=== PATIENT | female | born 1955 | race Hispanic/Latino ===

== ENCOUNTER 2019-01-23 11:58 | Day surgery (SDC) | payer MEDICAID ==
[~2019-01-23 11:58] MED LIST: Lactated Ringers 1,000 ML IV SCH; Lidocaine 1%/Sod Bicarbonate in NS 8.4% 1 ML Syringe IDERM PRN; Sodium Chloride 0.9% 10 ML Syringe FLUSH PRN
[2019-01-23] MEDS ORDERED: Propofol 200 MG/20 ML SDV ONE ×3 (12:09→14:41)
--- NOTE | 2019-01-23 12:34 | PCM.PREANE ---
Preanesthetic Assessment - Anesthesia/Transfusion/Family Hx Anesthesia History: Prior Anesthesia Without Reaction Family History of Anesthesia Reaction: No Transfusion History: No Prior Transfusion(s) - Review of Systems General: No Symptoms Pulmonary: No Symptoms Cardiovascular: Dyspnea on Exertion Gastrointestinal: No Symptoms Neurological: No Symptoms Other: Reports: None - Physical Assessment NPO Status Date: 01/22/19 NPO Status Time: 00:00 Pulse: 57 O2 Sat by Pulse Oximetry: 93 Respiratory Rate: 16 Blood Pressure: 135/69 Temperature: 36.4 C Height: 1.55 m Weight: 70.307 kg ASA Class: 2 Mental Status: Alert & Oriented x3 Airway Class: Mallampati = 1 Dentition: Reports: Caries Thyro-Mental Finger Breadths: 3 Mouth Opening Finger Breadths: 3 ROM/Head Extension: Full Lungs: Clear to Auscultation, Normal Respiratory Effort Cardiovascular: Regular Rate, Regular Rhythm - Blood Blood Available: No Product(s) Available: None - Anesthesia Plan Pre-Op Medication Ordered: None - Acknowledgements Anesthesia Type Planned: MAC Pt an Appropriate Candidate for the Planned Anesthesia: Yes Alternatives and Risks of Anesthesia Discussed w Pt/Guardian: Yes Pt/Guardian Understands and Agrees with Anesthesia Plan: Yes PreAnesthesia Questionnaire - SUBSTANCE USE Smoking Status *Q: Never Smoker Second Hand Smoke Exposure: No Days Per Week of Alcohol Use: 0 Number of Drinks Per Day: 0 Total Drinks Per Week: 0 Recreational Drug Use History: No - CURRENT (IN HOUSE) MEDS Current Meds: Current Medications Lactated Ringer's (Ringers, Lactated) 1,000 mls @ 125 mls/hr IV ASDIRECTED EUN Stop: 01/23/19 23:00 Lidocaine/Sodium Bicarbonate (Buffered Lidocaine 1% In Ns 8.4%) 0.25 ml IDERM ONETIME PRN PRN Reason: Prior to IV Start Stop: 01/23/19 18:00 Sodium Chloride (Saline Flush) 10 ml FLUSH ASDIRECTED PRN PRN Reason: Keep Vein Open Stop: 01/23/19 18:00 Discontinued Medications Propofol (Diprivan 20 Ml) Confirm Administered Dose 200 mg .ROUTE .STK-MED ONE Stop: 01/23/19 12:10
[2019-01-23] MEDS ORDERED: Lidocaine 1% 4 ML ONE (13:56)
[2019-01-23] MEDS ORDERED: fentaNYL 100 MCG/2 ML SDV ONE (14:34)
[2019-01-23] MEDS ORDERED: Bisacodyl 10 MG Supp RECTAL ONE (16:15)
--- NOTE | 2019-01-23 20:52 | OR ---
DATE OF OPERATION: 01/23/2019 SURGEON: Greg Tucker MD PREOPERATIVE DIAGNOSIS: Colorectal cancer screening. POSTOPERATIVE DIAGNOSIS: Colorectal cancer screening. OPERATION PERFORMED: Screening colonoscopy. ANESTHESIA: MAC. FINDINGS: She had an excellent bowel prep. There were no polyps. No diverticuloses were noted. She has no polyps. COMPLICATIONS: None. ESTIMATED BLOOD LOSS: None. PATHOLOGY: None. DISPOSITION: Stable at the end of the procedure. INDICATION: The patient is a 63-year-old female who has never had a colonoscopy. She has no family history of colon cancer. She was offered a screening colonoscopy per the standard of care. She was fully informed of the major risks of the procedure. These include, but are not limited to perforation of the colon, bleeding, the risks of anesthesia, and the possibility of further surgery. She gave informed consent to what was done. DESCRIPTION OF PROCEDURE: The patient was brought to the Gastro suite and placed in the left lateral decubitus position. She was giving MAC. Digital rectal exam was performed. This was unremarkable. I introduced the colonoscope into the rectum. I advanced the scope with copious lubrication keeping the lumen in view at all times. She has quite a redundant left colon, which required anterior abdominal wall pressure and repositioning several times. It took about 7 intubations for me to finally pass the scope to the cecum. I documented the cecum photographically. I slowly investigated the mucosa of the colon from the cecum back to the anus in an exam lasting 7 minutes. A thorough careful examination failed to demonstrate polyps, diverticulosis, or any other concerning lesion. The scope was withdrawn. Air was evacuated on the way out. PLAN: She will need another colonoscopy in 10 years. MMODAL /[id number]
== END 2019-01-23 17:23 | disposition home or self-care (01) ==
LOC: JD.SDS 11:58
PROVIDERS: ATTEND Surgery
DX: Z12.11 Encounter for screening for malignant neoplasm of colon (principal); E78.5 Hyperlipidemia, unspecified; Z79.899 Other long term (current) drug therapy
CPT/HCPCS: 00812; A9270-GY; J2001; J2704; J3010; J7120

== ENCOUNTER 2019-05-03 07:18 | Day surgery (SDC) | payer MEDICAID ==
[~2019-05-03 07:18] MED LIST changes: -Lactated Ringers 1,000 ML IV SCH
[2019-05-03] MEDS ORDERED: Lidocaine 1% 4 ML ONE (07:21)
[2019-05-03] MEDS ORDERED: Ondansetron 4 MG/2 ML SDV ONE (07:21)
[2019-05-03] MEDS ORDERED: Dexamethasone 4 MG/ML 5 ML MDV ONE (07:21)
[2019-05-03] MEDS ORDERED: Rocuronium 50 MG/5 ML Vial ONE (07:21)
[2019-05-03] MEDS ORDERED: Propofol 200 MG/20 ML SDV ONE (07:22)
[2019-05-03] MEDS ORDERED: fentaNYL 250 MCG/5 ML SDV ONE (07:22)
[2019-05-03] MEDS ORDERED: Bupivacaine 0.75%/D5W 2 ML Amp ONE (07:34)
[2019-05-03] MEDS: Lactated Ringers 1,000 ML IV SCH ×3 (07:35→20:51)
[2019-05-03] MEDS ORDERED: Lidocaine 1% with EPINEPHrine 1:100,000 20 ML MDV ONE (07:38)
[2019-05-03] MEDS ORDERED: Sodium Chloride 0.9% 50 ML SDV ONE (07:38)
[2019-05-03] MEDS ORDERED: ceFAZolin 1 GM Vial ONE (07:46)
[2019-05-03] MEDS ORDERED: Midazolam 1 MG/ML 2 ML SDV ONE (07:46)
--- NOTE | 2019-05-03 08:26 | PCM.PREANE ---
Preanesthetic Assessment - Procedure Proposed Procedure: Transvaginal Hysterectomy with Bilateral Salpingectomy, possible oophorectomy, possible A/P repair, possible sling - Anesthesia/Transfusion/Family Hx Anesthesia History: Prior Anesthesia Without Reaction Family History of Anesthesia Reaction: No Transfusion History: No Prior Transfusion(s) Anesthesia/Transfusion Comment: no previous difficulties with anesthesia or intubation per family neuropsychology medical consultant - Review of Systems General: No Symptoms Pulmonary: No Symptoms Cardiovascular: No Symptoms Gastrointestinal: No Symptoms Neurological: No Symptoms Other: Reports: None - Physical Assessment NPO Status Date: 05/02/19 NPO Status Time: 21:00 Vital Signs: Last Vital Signs Temp 36.5 C 05/03/19 07:25 Pulse 52 L 05/03/19 07:25 Resp 16 05/03/19 07:25 BP 149/72 H 05/03/19 07:25 Pulse Ox 94 L 05/03/19 07:25 Height: 5 ft 4 in Weight: 71.214 kg ASA Class: 2 Mental Status: Alert & Oriented x3 Airway Class: Mallampati = 2 Dentition: Reports: Normal Dentition Thyro-Mental Finger Breadths: 3 Mouth Opening Finger Breadths: 3 ROM/Head Extension: Full Lungs: Clear to Auscultation, Normal Respiratory Effort Cardiovascular: Regular Rhythm, Bradycardia - Lab Values: Laboratory Last Values WBC 4.57 K/mm3 (3.98-10.04) 05/03/19 07:35 RBC 4.82 M/mm3 (3.98-5.22) 05/03/19 07:35 Hgb 14.0 gm/dl (11.2-15.7) 05/03/19 07:35 Hct 40.8 % (34.1-44.9) 05/03/19 07:35 MCV 84.6 fl (79.4-94.8) 05/03/19 07:35 MCH 29.0 pg (25.6-32.2) 05/03/19 07:35 MCHC 34.3 g/dl (32.2-35.5) 05/03/19 07:35 RDW Std Deviation 41.9 fL (36.4-46.3) 05/03/19 07:35 Plt Count 243 K/mm3 (182-369) 05/03/19 07:35 MPV 10.2 fl (9.4-12.3) 05/03/19 07:35 Neut % (Auto) 56.9 % (34.0-71.1) 05/03/19 07:35 Lymph % (Auto) 30.4 % (19.3-51.7) 05/03/19 07:35 [place] % (Auto) 10.7 % (4.7-12.5) 05/03/19 07:35 Eos % (Auto) 1.3 (0.7-5.8) 05/03/19 07:35 Baso % (Auto) 0.7 % (0.1-1.2) 05/03/19 07:35 Neut # (Auto) 2.60 K/mm3 (1.56-6.13) 05/03/19 07:35 Lymph # (Auto) 1.39 K/mm3 (1.18-3.74) 05/03/19 07:35 [place] # (Auto) 0.49 K/mm3 (0.24-0.36) H 05/03/19 07:35 Eos # (Auto) 0.06 K/mm3 (0.04-0.36) 05/03/19 07:35 Baso # (Auto) 0.03 K/mm3 (0.01-0.08) 05/03/19 07:35 Sodium 140 mEq/L (136-145) 05/03/19 07:35 Potassium 3.7 mEq/L (3.5-5.1) 05/03/19 07:35 Chloride 104 mEq/L (98-107) 05/03/19 07:35 Carbon Dioxide 25 mEq/L (21-32) 05/03/19 07:35 Anion Gap 14.7 (5-15) 05/03/19 07:35 BUN 16 mg/dL (7-18) 05/03/19 07:35 Creatinine 0.6 mg/dL (0.55-1.02) 05/03/19 07:35 Est Cr Clr Drug Dosing 81.80 mL/min 05/03/19 07:35 Estimated GFR (MDRD) > 60 mL/min (>60) 05/03/19 07:35 BUN/Creatinine Ratio 26.7 (14-18) H 05/03/19 07:35 Glucose 106 mg/dL (80-115) 05/03/19 07:35 Calcium 9.6 mg/dL (8.5-10.1) 05/03/19 07:35 Total Bilirubin 0.6 mg/dL (0.2-1.0) 05/03/19 07:35 AST 18 U/L (15-37) 05/03/19 07:35 ALT 33 U/L (14-59) 05/03/19 07:35 Alkaline Phosphatase 64 U/L (46-116) 05/03/19 07:35 Total Protein 7.9 g/dl (6.4-8.2) 05/03/19 07:35 Albumin 4.3 g/dl (3.4-5.0) 05/03/19 07:35 Globulin 3.6 gm/dL 05/03/19 07:35 Albumin/Globulin Ratio 1.2 (1-2) 05/03/19 07:35 Urine Color Yellow (Yellow) 05/03/19 07:21 Urine Appearance Clear (Clear) 05/03/19 07:21 Urine pH 7.5 (5.0-8.0) 05/03/19 07:21 Ur Specific [place] 1.020 (1.005-1.030) 05/03/19 07:21 Urine Protein Negative (Negative) 05/03/19 07:21 Urine Glucose (UA) Negative (Negative) 05/03/19 07:21 Urine Ketones Negative (Negative) 05/03/19 07:21 Urine Occult Blood 1+ (Negative) H 05/03/19 07:21 Urine Nitrite Negative (Negative) 05/03/19 07:21 Urine Bilirubin Negative (Negative) 05/03/19 07:21 Urine Urobilinogen 0.2 (0.2-1.0) 05/03/19 07:21 Ur Leukocyte Esterase 1+ (Negative) H 05/03/19 07:21 - Allergies Allergies/Adverse Reactions: Allergies Allergy/AdvReac Type Severity Reaction Status Date / Time No Known Allergies Allergy Verified 05/03/19 08:09 - Anesthesia Plan Pre-Op Medication Ordered: None - Acknowledgements Anesthesia Type Planned: General Anesthesia Pt an Appropriate Candidate for the Planned Anesthesia: Yes Alternatives and Risks of Anesthesia Discussed w Pt/Guardian: Yes Pt/Guardian Understands and Agrees with Anesthesia Plan: Yes PreAnesthesia Questionnaire HEENT History: Reports: Glaucoma, Sinusitis, Other (See Below) Other HEENT History: sinus surgery, wears glasses, has lower dentures Cardiovascular History: Reports: SOB on Exertion Respiratory History: Reports: None Gastrointestinal History: Reports: GERD Genitourinary History: Reports: Renal Disease, Other (See Below) Other Genitourinary History: ESRD, urinary retention CAMPUS COORDINATOR History: Reports: None Musculoskeletal History: Reports: Osteoporosis Neurological History: Reports: None Psychiatric History: Reports: Anxiety, Depression Endocrine/Metabolic History: Reports: Hypothyroidism Hematologic History: Reports: Anemia, Other (See Below) Other Hematologic History: hyperphosphatemia Immunologic History: Reports: None Oncologic (Cancer) History: Reports: Prostate Dermatologic History: Reports: Other (See Below) Other Dermatologic History: senile hyperkeratosis, viral warts - Past Surgical History Head Surgeries/Procedures: Reports: None HEENT Surgical History: Reports: None Cardiovascular Surgical History: Reports: None, Vascular Surgery Respiratory Surgical History: Reports: None GI Surgical History: Reports: Appendectomy, Cholecystectomy, Colonoscopy, EGD, Hernia Repair/Other, Other (See Below) Other GI Surgeries/Procedures: splenectomy Other Female Surgeries/Procedures: cystoscopy, kidney transplant x 2 (1983 and 2006) Male Surgical History: Reports: Nephrectomy, Other (See Below) Endocrine Surgical History: Reports: None Neurological Surgical History: Reports: None Musculoskeletal Surgical History: Reports: None Oncologic Surgical History: Reports: None Dermatological Surgical History: Reports: None - SUBSTANCE USE Smoking Status *Q: Never Smoker Tobacco Use Within Last Twelve Months: No Second Hand Smoke Exposure: No Recreational Drug Use History: No - HOME MEDS Home Medications: Home Meds Cholecalciferol (Vitamin D3) [Vitamin D3] 2,000 unit PO DAILY 01/23/19 [History] Rosuvastatin [Crestor] 5 mg PO DAILY 01/23/19 [History] Alendronate Sodium [Fosamax] 70 mg PO FR 05/03/19 [History] Meloxicam 15 mg PO DAILY PRN 05/03/19 [History] - CURRENT (IN HOUSE) MEDS Current Meds: Current Medications Lactated Ringer's (Ringers, Lactated) 1,000 mls @ 125 mls/hr IV ASDIRECTED EUN Stop: 05/03/19 23:00 Last Admin: 05/03/19 07:35 Dose: 125 mls/hr Lidocaine/Sodium Bicarbonate (Buffered Lidocaine 1% In Ns 8.4%) 0.25 ml IDERM ONETIME PRN PRN Reason: Prior to IV Start Stop: 05/03/19 18:00 Last Admin: 05/03/19 07:35 Dose: 0.25 ml Sodium Chloride (Saline Flush) 10 ml FLUSH ASDIRECTED PRN PRN Reason: Keep Vein Open Stop: 05/03/19 18:00 Discontinued Medications Bupivacaine HCl/Dextrose (Marcaine 0.75% Spinal) Confirm Administered Dose 2 ml .ROUTE .STK-MED ONE Stop: 05/03/19 07:35 Cefazolin Sodium (Ancef) Confirm Administered Dose 2 gm .ROUTE .STK-MED ONE Stop: 05/03/19 07:47 Dexamethasone (Dexamethasone) Confirm Administered Dose 20 mg .ROUTE .STK-MED ONE Stop: 05/03/19 07:22 Fentanyl (Sublimaze) Confirm Administered Dose 250 mcg .ROUTE .STK-MED ONE Stop: 05/03/19 07:23 Lidocaine HCl (Xylocaine-Mpf 1%) Confirm Administered Dose 4 mls @ as directed .ROUTE .STK-MED ONE Stop: 05/03/19 07:22 Lidocaine/Epinephrine (Xylocaine 1% With Epinephrine 1:100,000) Confirm Administered Dose 20 ml .ROUTE .STK-MED ONE Stop: 05/03/19 07:39 Midazolam HCl (Versed 1 Mg/Ml) Confirm Administered Dose 2 mg .ROUTE .STK-MED ONE Stop: 05/03/19 07:47 Ondansetron HCl (Zofran) Confirm Administered Dose 4 mg .ROUTE .STK-MED ONE Stop: 05/03/19 07:22 Propofol (Diprivan 20 Ml) Confirm Administered Dose 200 mg .ROUTE .STK-MED ONE Stop: 05/03/19 07:23 Rocuronium [place] (Zemuron) Confirm Administered Dose 50 mg .ROUTE .STK-MED ONE Stop: 05/03/19 07:22 Sodium Chloride (Normal Saline) Confirm Administered Dose 50 ml .ROUTE .STK-MED ONE Stop: 05/03/19 07:39
[2019-05-03] MEDS ORDERED: Morphine 10 MG/ML SDV ONE (09:09)
[2019-05-03] MEDS ORDERED: Enoxaparin 40 MG/0.4 ML Syringe SUBCUT ONE (10:12)
[2019-05-03] MEDS ORDERED: fentaNYL 100 MCG/2 ML SDV IVPUSH PRN (10:22)
[2019-05-03] MEDS ORDERED: Ondansetron 4 MG/2 ML SDV IVPUSH PRN ×2 (10:22→16:02)
[2019-05-03] MEDS ORDERED: HYDROmorphone 0.5 MG/0.5 ML Syringe IVPUSH PRN (10:22)
--- NOTE | 2019-05-03 10:24 | PCM.POSTAN ---
POST ANESTHESIA ASSESSMENT - MENTAL STATUS Mental Status: Somnolent - VITAL SIGNS Vital Signs: Last Vital Signs Temp 36.7 C 05/03/19 10:00 Pulse 68 05/03/19 10:00 Resp 12 05/03/19 10:00 BP 119/74 05/03/19 10:00 Pulse Ox 92 L 05/03/19 10:00 - RESPIRATORY Respiratory Status: Respiratory Rate WNL, Airway Patent, O2 Saturation Stable - CARDIOVASCULAR CV Status: Pulse Rate WNL, Blood Pressure Stable - GASTROINTESTINAL GI Status: No Symptoms - POST OP HYDRATION Hydration Status: Adequate & Stable - OBSERVATIONS Free Text/Narrative:: Patient somnolent but stable
--- NOTE | 2019-05-03 10:30 | PCM.OPNOTE ---
- General Post-Op/Procedure Note Date of Surgery/Procedure: 05/03/19 Operative Procedure(s): Transvaginal hysterectomy, bilateral salpingectomy, anterior repair, transvaginal tape mid urethral sling and cystoscopy Findings: Grossly normal-appearing cervix, uterus and bilateral fallopian tubes. Normal- appearing ovaries on exam. Grade 3 cystocele on exam with grade 1 rectocele. Pre Op Diagnosis: Uterine prolapse, female pelvic pain, stress urinary incontinence and cystocele Post-Op Diagnosis: Same Anesthesia Technique: General ET Tube Primary Surgeon: Juvenal Gramajo Anesthesia Provider: Duong Caro Blurb Writer: Andi Caballero Blurb Writer: Sloan Appiah ([place] student) Reason Blurb Writer Was Necessary: Patient safety and reduction of morbidity and mortality Role of Blurb Writer: Retraction of tissue during procedure for visualization and safety of procedure Pathology: Cervix, uterus and bilateral fallopian tubes Fluid Replacement, Intraop: 1,500 Output, Urine Amount: 400 EBL in mLs: 100 Complications: None Condition: Good Free Text/Narrative:: Procedure in detail: The patient was seen in the preoperative holding area and risks, benefits, indications, and alternatives of the procedure were reviewed with the patient and she desired to proceed with a total vaginal hysterectomy, bilateral salpingectomy, anterior repair, mid urethral sling, cystoscopy, possible posterior repair and possible total abdominal hysterectomy. Consents were signed. The patient was given general anesthesia with an endotracheal tube that was placed without difficulty. The patient was placed in dorsal lithotomy position , prepped, and draped in normal sterile fashion. A urethral catheter was placed into the bladder for drainage of the urine from the bladder. A weighted speculum was placed into the vagina and the anterior lip of the cervix was grasped with the single-tooth tenaculum. A second single-tooth tenaculum was used to grasp the entirety of the cervix. The cervix was injected circumferentially with 0.25% lidocaine with epinephrine. The cervix was circumferentially incised with a scalpel. The bladder was dissected off the pubovesical cervical fascia anteriorly with Badillo scissors. The posterior cul-de -sac was entered sharply without difficulty using Badillo scissors. A Enseal vessel sealing device was placed over the uterosacral ligaments on the patient' s left side. These were cauterized and ligated with the LigaSure vessel sealing device. This was repeated on the patient's right side. Hemostasis was assured. The anterior cul-de-sac was then able to be entered using sharp dissection with Badillo scissors. The cardinal ligaments were then clamped on both sides with Enseal vessel sealing device, cauterized and ligated with the device. The uterine arteries and broad ligament were then serially clamped with Enseal vessel sealing device, cauterized and ligated with the device] on both sides. Hemostasis was visualized at this time. The cornua on the left side was clamped using a Shandra clamp and ligated with scissors. A foreign aft stitch with 0 Monocryl was used for hemostasis. The cornua was clamped on the right side with Enseal vessel sealing device, cauterized and ligated, and the uterus delivered. The pedicles were inspected and noted to have hemostasis. The left fallopian tube was then visualized and grasped using a Favian clamp and excised using LigaSure vessel sealing device. This was repeated on the right side with grasping of the fallopian tube with a Favian clamp and excised using LigaSure vessel sealing device. The posterior vaginal cuff was closed with running locked sutures of 0-Monocryl. Attention was then turned to the pelvis for the anterior and posterior repair. There was noted to be a grade 3 cystocele and grade 1 rectocele. The vaginal mucosa overlying the bladder was grasped using Allis clamps and was injected using 0.25% lidocaine with epinephrine. The mucosa was then excised in a triangular fashion using a scalpel and Badillo scissors. The lateral sides of the bladder the mucosa was undermined using Badillo scissors. The vesicovaginal fascia was then reapproximated using 0-Monocryl suture with box sutures. The edges of the vaginal mucosa was trimmed further using Metzenbaum scissors. The incision was closed using 3-0 Monocryl sutures in a running locked fashion. The vaginal cuff was closed with running locked stitches in a horizontal fashion with 0-Monocryl. Hemostasis was noted at this time. An Allis clamp was placed approximately 2 cm below the urethral opening. A second Allis clamp was placed 2 cm below the first Allis clamp. The vaginal mucosa was then injected with 0.25% lidocaine with epinephrine. A scalpel was used to make a midline incision through the vaginal mucosa. Badillo scissors were used to dissect the vaginal mucosa from the underlying tissue on the patient's right side. This was carried out to the pubic rami. This was repeated on the left side and completed without difficulty. Attention was then turned to the patient's mons and the skin was injected with 0.25% lidocaine with epinephrine in the bilateral sides approximately 2 cm from midline. A stab incision was made with a scalpel on the bilateral sides without complications. The urethral sling hook was then used on the patient's left side and placed through the stab incision and with a finger in the vagina behind the pubic rami, the tip of the hook was felt and then directed out through the midline vaginal incision. The transobturator tape was attached to the hook and pulled through the incision. Attention was then turned to the patient's right side where, again, the transobturator pigtail hook was placed through the stab incision and with a finger in the vagina was directed posterior to the lateral pubic rami and directed through the vaginal incision. The other end of the tape was attached to the hook and pulled through, making sure that the tape was flat under the patient's urethra. The bladder was then filled with 240 mL of sterile saline through the previously inserted urethral catheter. The urethral catheter was removed at this time. A simple cystoscopy was performed and evaluation of the bilateral bladder chauhan did not show any evidence of injury. There was bilateral ureteral jetting noted with cystoscopy. The cystoscopy portion of the procedure was completed at this time. A Badillo scissors was used between the urethral sling and urethra to allow for a tension-free placement of the tape. The ends of the tape were then cut at the level of the skin on the patient on both sides at the stab incisions. Attention was then turned to the midline incision, which was closed using 3-0 Monocryl in a running fashion. The skin incisions were closed using Dermabond glue. All instruments were removed from the vagina. The patient was awoken and taken to the PACU for recovery in stable condition. Sponge, lap, needle, and instrument counts were correct x 2.
--- NOTE | 2019-05-03 11:17 | PCM48HPAN ---
Post Anesthesia Note - EVALUATION WITHIN 48HRS OF ANESTHETIC Vital Signs in Normal Range: Yes Patient Participated in Evaluation: No Respiratory Function Stable: Yes Airway Patent: Yes Cardiovascular Function Stable: Yes Hydration Status Stable: Yes Pain Control Satisfactory: Yes Nausea and Vomiting Control Satisfactory: Yes Mental Status Recovered: Yes Vital Signs: Last Vital Signs Temp 36.6 C 05/03/19 10:45 Pulse 65 05/03/19 10:45 Resp 14 05/03/19 10:45 BP 137/74 05/03/19 10:45 Pulse Ox 94 L 05/03/19 10:45 - COMMENTS/OBSERVATIONS Free Text/Narrative:: Patient somewhat somnolent but denies pain and nausea. No O2 requirements. CTAB. VSS. SV. SIN. FAC. No complications.
[2019-05-03] MEDS: Acetaminophen/oxyCODONE 325-5 MG Tab PO PRN ×3 (13:21→21:16)
[2019-05-03] MEDS ORDERED: Ibuprofen 600 MG Tab PO PRN (16:02)
[2019-05-04] MEDS ORDERED: Lactated Ringers 1,000 ML IV SCH (05:15)
--- NOTE | 2019-05-04 07:16 | PCM.SN ---
- Free Text/Narrative Note: Post Op Note Subjective: Patient reports feeling well overall. Reports feeling much better this morning. Continues to have some difficulty with breathing due to the irritation in her throat from the endotracheal tube. Pain minimal and controlled with oral medications. Tolerating regular diet. Denies any nausea or vomiting this morning. Had 1 episode of emesis last evening after dinner. Reports not passing flatus at this time. Voiding without difficulty. Ambulating without difficulty. Objective: Vitals Vital Signs - 8 hr 05/04/19 05/04/19 00:16 04:59 Temperature 37.1 C 36.8 C Pulse, 45 L 48 L Peripheral Respiratory 14 12 Rate Blood Pressure 105/46 L 110/57 L O2 Sat by Pulse 92 L 92 L Oximetry I/O: Intake & Output 05/02/19 05/03/19 05/04/19 05/05/19 06:59 06:59 06:59 06:59 Intake Total 3140 Output Total 1510 Balance 1630 Gen: No acute distress, alert and oriented Lungs: Clear to auscultation bilaterally Heart: Regular rate and rhythm Abdomen: Soft, minimal appropriate tenderness, nondistended, bowel sounds positive Incisions: Healing well, no bleeding or discharge, no erythema present, skin glue covering incisions Pelvic: Minimal appropriate bleeding present on thang-pad Laboratory Results - last 24 hr 05/03/19 05/03/19 05/03/19 Range/Units 07:21 07:35 07:35 WBC 4.57 (3.98-10.04) K/mm3 RBC 4.82 (3.98-5.22) M/mm3 Hgb 14.0 (11.2-15.7) gm/dl Hct 40.8 (34.1-44.9) % MCV 84.6 (79.4-94.8) fl MCH 29.0 (25.6-32.2) pg MCHC 34.3 (32.2-35.5) g/dl RDW Std Deviation 41.9 (36.4-46.3) fL Plt Count 243 (182-369) K/mm3 MPV 10.2 (9.4-12.3) fl Neut % (Auto) 56.9 (34.0-71.1) % Lymph % (Auto) 30.4 (19.3-51.7) % [place] % (Auto) 10.7 (4.7-12.5) % Eos % (Auto) 1.3 (0.7-5.8) Baso % (Auto) 0.7 (0.1-1.2) % Neut # (Auto) 2.60 (1.56-6.13) K/mm3 Lymph # (Auto) 1.39 (1.18-3.74) K/mm3 [place] # (Auto) 0.49 H (0.24-0.36) K/mm3 Eos # (Auto) 0.06 (0.04-0.36) K/mm3 Baso # (Auto) 0.03 (0.01-0.08) K/mm3 Sodium (136-145) mEq/L Potassium (3.5-5.1) mEq/L Chloride (98-107) mEq/L Carbon Dioxide (21-32) mEq/L Anion Gap (5-15) BUN (7-18) mg/dL Creatinine (0.55-1.02) mg/dL Est Cr Clr Drug Dosing mL/min Estimated GFR (MDRD) (>60) mL/min BUN/Creatinine Ratio (14-18) Glucose (80-115) mg/dL Calcium (8.5-10.1) mg/dL Total Bilirubin (0.2-1.0) mg/dL AST (15-37) U/L ALT (14-59) U/L Alkaline Phosphatase (46-116) U/L Total Protein (6.4-8.2) g/dl Albumin (3.4-5.0) g/dl Globulin gm/dL Albumin/Globulin Ratio (1-2) Urine Color Yellow (Yellow) Urine Appearance Clear (Clear) Urine pH 7.5 (5.0-8.0) Ur Specific [place] 1.020 (1.005-1.030) Urine Protein Negative (Negative) Urine Glucose (UA) Negative (Negative) Urine Ketones Negative (Negative) Urine Occult Blood 1+ H (Negative) Urine Nitrite Negative (Negative) Urine Bilirubin Negative (Negative) Urine Urobilinogen 0.2 (0.2-1.0) Ur Leukocyte Esterase 1+ H (Negative) Blood Type A POSITIVE Gel Antibody Screen Negative 05/03/19 05/04/19 Range/Units 07:35 04:05 WBC 6.97 (3.98-10.04) K/mm3 RBC 4.18 (3.98-5.22) M/mm3 Hgb 12.1 D (11.2-15.7) gm/dl Hct 35.5 (34.1-44.9) % MCV 84.9 (79.4-94.8) fl MCH 28.9 (25.6-32.2) pg MCHC 34.1 (32.2-35.5) g/dl RDW Std Deviation 41.2 (36.4-46.3) fL Plt Count 228 (182-369) K/mm3 MPV 10.5 (9.4-12.3) fl Neut % (Auto) 75.9 H (34.0-71.1) % Lymph % (Auto) 14.9 L (19.3-51.7) % [place] % (Auto) 9.2 (4.7-12.5) % Eos % (Auto) 0 L (0.7-5.8) Baso % (Auto) 0.0 L (0.1-1.2) % Neut # (Auto) 5.29 (1.56-6.13) K/mm3 Lymph # (Auto) 1.04 L (1.18-3.74) K/mm3 [place] # (Auto) 0.64 H (0.24-0.36) K/mm3 Eos # (Auto) 0.00 L (0.04-0.36) K/mm3 Baso # (Auto) 0.00 L (0.01-0.08) K/mm3 Sodium 140 (136-145) mEq/L Potassium 3.7 (3.5-5.1) mEq/L Chloride 104 (98-107) mEq/L Carbon Dioxide 25 (21-32) mEq/L Anion Gap 14.7 (5-15) BUN 16 (7-18) mg/dL Creatinine 0.6 (0.55-1.02) mg/dL Est Cr Clr Drug Dosing 81.80 mL/min Estimated GFR (MDRD) > 60 (>60) mL/min BUN/Creatinine Ratio 26.7 H (14-18) Glucose 106 (80-115) mg/dL Calcium 9.6 (8.5-10.1) mg/dL Total Bilirubin 0.6 (0.2-1.0) mg/dL AST 18 (15-37) U/L ALT 33 (14-59) U/L Alkaline Phosphatase 64 (46-116) U/L Total Protein 7.9 (6.4-8.2) g/dl Albumin 4.3 (3.4-5.0) g/dl Globulin 3.6 gm/dL Albumin/Globulin Ratio 1.2 (1-2) Urine Color (Yellow) Urine Appearance (Clear) Urine pH (5.0-8.0) Ur Specific [place] (1.005-1.030) Urine Protein (Negative) Urine Glucose (UA) (Negative) Urine Ketones (Negative) Urine Occult Blood (Negative) Urine Nitrite (Negative) Urine Bilirubin (Negative) Urine Urobilinogen (0.2-1.0) Ur Leukocyte Esterase (Negative) Blood Type Gel Antibody Screen Assesment/Plan: 64-year-old with postoperative drop in her saturation requiring additional monitoring and oxygen supplementation as well as monitoring bleeding in the setting of surgery with Lovenox injection status post transvaginal hysterectomy , bilateral salpingectomy, anterior repair, tension-free transvaginal tape mid urethral sling and cystoscopy POD #1 Doing well No concerns at this time Routine post op care Monitor vitals Minimal drop in her hemoglobin from 14.0 down to 12.1 this morning. Suspect that this is due to the loss during surgery and hemodilution with IV fluids. Patient doing well with normal vital signs. Patient maintaining O2 saturations in mid 90s without oxygen supplementation. Patient feels much improved after surgery yesterday. She desires to be discharged home this morning. Discharge home today Juvenal Gramajo MD 7:14 AM 05/04/2019
--- NOTE | 2019-05-04 07:22 | PCM.DCSUM1 ---
Discharge Summary - Hospital Course Free Text/Narrative:: Procedure in detail: The patient was seen in the preoperative holding area and risks, benefits, indications, and alternatives of the procedure were reviewed with the patient and she desired to proceed with a total vaginal hysterectomy, bilateral salpingectomy, anterior repair, mid urethral sling, cystoscopy, possible posterior repair and possible total abdominal hysterectomy. Consents were signed. The patient was given general anesthesia with an endotracheal tube that was placed without difficulty. The patient was placed in dorsal lithotomy position , prepped, and draped in normal sterile fashion. A urethral catheter was placed into the bladder for drainage of the urine from the bladder. A weighted speculum was placed into the vagina and the anterior lip of the cervix was grasped with the single-tooth tenaculum. A second single-tooth tenaculum was used to grasp the entirety of the cervix. The cervix was injected circumferentially with 0.25% lidocaine with epinephrine. The cervix was circumferentially incised with a scalpel. The bladder was dissected off the pubovesical cervical fascia anteriorly with Badillo scissors. The posterior cul-de -sac was entered sharply without difficulty using Badillo scissors. A Enseal vessel sealing device was placed over the uterosacral ligaments on the patient' s left side. These were cauterized and ligated with the LigaSure vessel sealing device. This was repeated on the patient's right side. Hemostasis was assured. The anterior cul-de-sac was then able to be entered using sharp dissection with Badillo scissors. The cardinal ligaments were then clamped on both sides with Enseal vessel sealing device, cauterized and ligated with the device. The uterine arteries and broad ligament were then serially clamped with Enseal vessel sealing device, cauterized and ligated with the device] on both sides. Hemostasis was visualized at this time. The cornua on the left side was clamped using a Shandra clamp and ligated with scissors. A foreign aft stitch with 0 Monocryl was used for hemostasis. The cornua was clamped on the right side with Enseal vessel sealing device, cauterized and ligated, and the uterus delivered. The pedicles were inspected and noted to have hemostasis. The left fallopian tube was then visualized and grasped using a Favian clamp and excised using LigaSure vessel sealing device. This was repeated on the right side with grasping of the fallopian tube with a Favian clamp and excised using LigaSure vessel sealing device. The posterior vaginal cuff was closed with running locked sutures of 0-Monocryl. Attention was then turned to the pelvis for the anterior and posterior repair. There was noted to be a grade 3 cystocele and grade 1 rectocele. The vaginal mucosa overlying the bladder was grasped using Allis clamps and was injected using 0.25% lidocaine with epinephrine. The mucosa was then excised in a triangular fashion using a scalpel and Badillo scissors. The lateral sides of the bladder the mucosa was undermined using Badillo scissors. The vesicovaginal fascia was then reapproximated using 0-Monocryl suture with box sutures. The edges of the vaginal mucosa was trimmed further using Metzenbaum scissors. The incision was closed using 3-0 Monocryl sutures in a running locked fashion. The vaginal cuff was closed with running locked stitches in a horizontal fashion with 0-Monocryl. Hemostasis was noted at this time. An Allis clamp was placed approximately 2 cm below the urethral opening. A second Allis clamp was placed 2 cm below the first Allis clamp. The vaginal mucosa was then injected with 0.25% lidocaine with epinephrine. A scalpel was used to make a midline incision through the vaginal mucosa. Badillo scissors were used to dissect the vaginal mucosa from the underlying tissue on the patient's right side. This was carried out to the pubic rami. This was repeated on the left side and completed without difficulty. Attention was then turned to the patient's mons and the skin was injected with 0.25% lidocaine with epinephrine in the bilateral sides approximately 2 cm from midline. A stab incision was made with a scalpel on the bilateral sides without complications. The urethral sling hook was then used on the patient's left side and placed through the stab incision and with a finger in the vagina behind the pubic rami, the tip of the hook was felt and then directed out through the midline vaginal incision. The transobturator tape was attached to the hook and pulled through the incision. Attention was then turned to the patient's right side where, again, the transobturator pigtail hook was placed through the stab incision and with a finger in the vagina was directed posterior to the lateral pubic rami and directed through the vaginal incision. The other end of the tape was attached to the hook and pulled through, making sure that the tape was flat under the patient's urethra. The bladder was then filled with 240 mL of sterile saline through the previously inserted urethral catheter. The urethral catheter was removed at this time. A simple cystoscopy was performed and evaluation of the bilateral bladder chauhan did not show any evidence of injury. There was bilateral ureteral jetting noted with cystoscopy. The cystoscopy portion of the procedure was completed at this time. A Badillo scissors was used between the urethral sling and urethra to allow for a tension-free placement of the tape. The ends of the tape were then cut at the level of the skin on the patient on both sides at the stab incisions. Attention was then turned to the midline incision, which was closed using 3-0 Monocryl in a running fashion. The skin incisions were closed using Dermabond glue. All instruments were removed from the vagina. The patient was awoken and taken to the PACU for recovery in stable condition. Sponge, lap, needle, and instrument counts were correct x 2. HPI Initial Comments: Procedure in detail: The patient was seen in the preoperative holding area and risks, benefits, indications, and alternatives of the procedure were reviewed with the patient and she desired to proceed with a total vaginal hysterectomy, bilateral salpingectomy, anterior repair, mid urethral sling, cystoscopy, possible posterior repair and possible total abdominal hysterectomy. Consents were signed. The patient was given general anesthesia with an endotracheal tube that was placed without difficulty. The patient was placed in dorsal lithotomy position , prepped, and draped in normal sterile fashion. A urethral catheter was placed into the bladder for drainage of the urine from the bladder. A weighted speculum was placed into the vagina and the anterior lip of the cervix was grasped with the single-tooth tenaculum. A second single-tooth tenaculum was used to grasp the entirety of the cervix. The cervix was injected circumferentially with 0.25% lidocaine with epinephrine. The cervix was circumferentially incised with a scalpel. The bladder was dissected off the pubovesical cervical fascia anteriorly with Badillo scissors. The posterior cul-de -sac was entered sharply without difficulty using Badillo scissors. A Enseal vessel sealing device was placed over the uterosacral ligaments on the patient' s left side. These were cauterized and ligated with the LigaSure vessel sealing device. This was repeated on the patient's right side. Hemostasis was assured. The anterior cul-de-sac was then able to be entered using sharp dissection with Badillo scissors. The cardinal ligaments were then clamped on both sides with Enseal vessel sealing device, cauterized and ligated with the device. The uterine arteries and broad ligament were then serially clamped with Enseal vessel sealing device, cauterized and ligated with the device] on both sides. Hemostasis was visualized at this time. The cornua on the left side was clamped using a Shandra clamp and ligated with scissors. A foreign aft stitch with 0 Monocryl was used for hemostasis. The cornua was clamped on the right side with Enseal vessel sealing device, cauterized and ligated, and the uterus delivered. The pedicles were inspected and noted to have hemostasis. The left fallopian tube was then visualized and grasped using a Silverpeak clamp and excised using LigaSure vessel sealing device. This was repeated on the right side with grasping of the fallopian tube with a Favian clamp and excised using LigaSure vessel sealing device. The posterior vaginal cuff was closed with running locked sutures of 0-Monocryl. Attention was then turned to the pelvis for the anterior and posterior repair. There was noted to be a grade 3 cystocele and grade 1 rectocele. The vaginal mucosa overlying the bladder was grasped using Allis clamps and was injected using 0.25% lidocaine with epinephrine. The mucosa was then excised in a triangular fashion using a scalpel and Badillo scissors. The lateral sides of the bladder the mucosa was undermined using Badillo scissors. The vesicovaginal fascia was then reapproximated using 0-Monocryl suture with box sutures. The edges of the vaginal mucosa was trimmed further using Metzenbaum scissors. The incision was closed using 3-0 Monocryl sutures in a running locked fashion. The vaginal cuff was closed with running locked stitches in a horizontal fashion with 0-Monocryl. Hemostasis was noted at this time. An Allis clamp was placed approximately 2 cm below the urethral opening. A second Allis clamp was placed 2 cm below the first Allis clamp. The vaginal mucosa was then injected with 0.25% lidocaine with epinephrine. A scalpel was used to make a midline incision through the vaginal mucosa. Badillo scissors were used to dissect the vaginal mucosa from the underlying tissue on the patient's right side. This was carried out to the pubic rami. This was repeated on the left side and completed without difficulty. Attention was then turned to the patient's mons and the skin was injected with 0.25% lidocaine with epinephrine in the bilateral sides approximately 2 cm from midline. A stab incision was made with a scalpel on the bilateral sides without complications. The urethral sling hook was then used on the patient's left side and placed through the stab incision and with a finger in the vagina behind the pubic rami, the tip of the hook was felt and then directed out through the midline vaginal incision. The transobturator tape was attached to the hook and pulled through the incision. Attention was then turned to the patient's right side where, again, the transobturator pigtail hook was placed through the stab incision and with a finger in the vagina was directed posterior to the lateral pubic rami and directed through the vaginal incision. The other end of the tape was attached to the hook and pulled through, making sure that the tape was flat under the patient's urethra. The bladder was then filled with 240 mL of sterile saline through the previously inserted urethral catheter. The urethral catheter was removed at this time. A simple cystoscopy was performed and evaluation of the bilateral bladder chauhan did not show any evidence of injury. There was bilateral ureteral jetting noted with cystoscopy. The cystoscopy portion of the procedure was completed at this time. A Badillo scissors was used between the urethral sling and urethra to allow for a tension-free placement of the tape. The ends of the tape were then cut at the level of the skin on the patient on both sides at the stab incisions. Attention was then turned to the midline incision, which was closed using 3-0 Monocryl in a running fashion. The skin incisions were closed using Dermabond glue. All instruments were removed from the vagina. The patient was awoken and taken to the PACU for recovery in stable condition. Sponge, lap, needle, and instrument counts were correct x 2. Brief History: Procedure in detail: The patient was seen in the preoperative holding area and risks, benefits, indications, and alternatives of the procedure were reviewed with the patient and she desired to proceed with a total vaginal hysterectomy, bilateral salpingectomy, anterior repair, mid urethral sling, cystoscopy, possible posterior repair and possible total abdominal hysterectomy. Consents were signed. The patient was given general anesthesia with an endotracheal tube that was placed without difficulty. The patient was placed in dorsal lithotomy position, prepped, and draped in normal sterile fashion. A urethral catheter was placed into the bladder for drainage of the urine from the bladder. A weighted speculum was placed into the vagina and the anterior lip of the cervix was grasped with the single-tooth tenaculum. A second single-tooth tenaculum was used to grasp the entirety of the cervix. The cervix was injected circumferentially with 0.25% lidocaine with epinephrine. The cervix was circumferentially incised with a scalpel. The bladder was dissected off the pubovesical cervical fascia anteriorly with Badillo scissors. The posterior cul-de-sac was entered sharply without difficulty using Badillo scissors. A Enseal vessel sealing device was placed over the uterosacral ligaments on the patient's left side. These were cauterized and ligated with the LigaSure vessel sealing device. This was repeated on the patient's right side. Hemostasis was assured. The anterior cul-de-sac was then able to be entered using sharp dissection with Badillo scissors. The cardinal ligaments were then clamped on both sides with Enseal vessel sealing device, cauterized and ligated with the device. The uterine arteries and broad ligament were then serially clamped with Enseal vessel sealing device, cauterized and ligated with the device] on both sides. Hemostasis was visualized at this time. The cornua on the left side was clamped using a Shandra clamp and ligated with scissors. A foreign aft stitch with 0 Monocryl was used for hemostasis. The cornua was clamped on the right side with Enseal vessel sealing device, cauterized and ligated, and the uterus delivered. The pedicles were inspected and noted to have hemostasis. The left fallopian tube was then visualized and grasped using a Favian clamp and excised using LigaSure vessel sealing device. This was repeated on the right side with grasping of the fallopian tube with a Silverpeak clamp and excised using LigaSure vessel sealing device. The posterior vaginal cuff was closed with running locked sutures of 0-Monocryl. Attention was then turned to the pelvis for the anterior and posterior repair. There was noted to be a grade 3 cystocele and grade 1 rectocele. The vaginal mucosa overlying the bladder was grasped using Allis clamps and was injected using 0.25% lidocaine with epinephrine. The mucosa was then excised in a triangular fashion using a scalpel and Badillo scissors. The lateral sides of the bladder the mucosa was undermined using Badillo scissors. The vesicovaginal fascia was then reapproximated using 0- Monocryl suture with box sutures. The edges of the vaginal mucosa was trimmed further using Metzenbaum scissors. The incision was closed using 3-0 Monocryl sutures in a running locked fashion. The vaginal cuff was closed with running locked stitches in a horizontal fashion with 0-Monocryl. Hemostasis was noted at this time. An Allis clamp was placed approximately 2 cm below the urethral opening. A second Allis clamp was placed 2 cm below the first Allis clamp. The vaginal mucosa was then injected with 0.25% lidocaine with epinephrine. A scalpel was used to make a midline incision through the vaginal mucosa. Badillo scissors were used to dissect the vaginal mucosa from the underlying tissue on the patient's right side. This was carried out to the pubic rami. This was repeated on the left side and completed without difficulty. Attention was then turned to the patient's mons and the skin was injected with 0.25% lidocaine with epinephrine in the bilateral sides approximately 2 cm from midline. A stab incision was made with a scalpel on the bilateral sides without complications. The urethral sling hook was then used on the patient's left side and placed through the stab incision and with a finger in the vagina behind the pubic rami, the tip of the hook was felt and then directed out through the midline vaginal incision. The transobturator tape was attached to the hook and pulled through the incision. Attention was then turned to the patient's right side where, again, the transobturator pigtail hook was placed through the stab incision and with a finger in the vagina was directed posterior to the lateral pubic rami and directed through the vaginal incision. The other end of the tape was attached to the hook and pulled through, making sure that the tape was flat under the patient's urethra. The bladder was then filled with 240 mL of sterile saline through the previously inserted urethral catheter. The urethral catheter was removed at this time. A simple cystoscopy was performed and evaluation of the bilateral bladder chauhan did not show any evidence of injury. There was bilateral ureteral jetting noted with cystoscopy. The cystoscopy portion of the procedure was completed at this time. A Badillo scissors was used between the urethral sling and urethra to allow for a tension-free placement of the tape. The ends of the tape were then cut at the level of the skin on the patient on both sides at the stab incisions. Attention was then turned to the midline incision, which was closed using 3-0 Monocryl in a running fashion. The skin incisions were closed using Dermabond glue. All instruments were removed from the vagina. The patient was awoken and taken to the PACU for recovery in stable condition. Sponge, lap, needle, and instrument counts were correct x 2. Diagnosis: Stroke: No - Discharge Data Discharge Date: 05/04/19 Discharge Disposition: Home, Self-Care 01 Condition: Good - Referral to Home Health Primary Care Physician: Maria Guadalupe Bates NP - Discharge Diagnosis/Problem(s) (1) S/P vaginal hysterectomy SNOMED Code(s): 634903919, [id number] ICD Code: Z90.710 - ACQUIRED ABSENCE OF BOTH CERVIX AND UTERUS Status: Acute Current Visit: Yes (2) Hx of vaginal surgery SNOMED Code(s): 986502433, 086921805 ICD Code: Z98.890 - OTHER SPECIFIED POSTPROCEDURAL STATES Status: Acute Current Visit: Yes (3) History of suburethral sling procedure SNOMED Code(s): 318258138 ICD Code: Z98.890 - OTHER SPECIFIED POSTPROCEDURAL STATES Status: Acute Current Visit: Yes (4) Uterine prolapse SNOMED Code(s): 56541002 ICD Code: N81.4 - UTEROVAGINAL PROLAPSE, UNSPECIFIED Status: Acute Current Visit: Yes (5) Stress incontinence in female SNOMED Code(s): 05704141 ICD Code: N39.3 - STRESS INCONTINENCE (FEMALE) (MALE) Status: Acute Current Visit: Yes (6) Pelvic pain in female SNOMED Code(s): 986369347 ICD Code: R10.2 - PELVIC AND PERINEAL PAIN Status: Acute Current Visit: Yes - Patient Summary/Data Operative Procedure(s) Performed: Transvaginal hysterectomy, bilateral salpingectomy, anterior repair, transvaginal tape mid urethral sling and cystoscopy Complications: Low O2 saturations after surgery with oxygen supplementation Hospital Course: Patient underwent transvaginal hysterectomy, bilateral salpingectomy, anterior repair, tension-free transvaginal tape mid urethral sling and cystoscopy on 05/03. The procedure was overall uncomplicated. In the postoperative recovery area she was overall doing well however she had low oxygen saturations with need of oxygen supplementation and also was somewhat sleepy as a result of her general anesthesia. She desired to be monitored overnight to ensure that she was safe prior to discharge. While she was in the PACU she was given her first dose of Lovenox 40 mg subcutaneous due to history of pulmonary embolism. Throughout the afternoon and evening of postoperative day #0 she was continued to be very sleepy and required oxygen supplementation. She ate some of her dinner and had an episode of emesis. She was given Zofran and this helped with her nausea. She was able to sleep through the night and during the night her oxygen was able to be discontinued and she maintained normal oxygen saturations. In the morning of postoperative day #1 she was doing very well. Her pain was able to be controlled with oral medications. She denied any nausea or vomiting. She was ambulating without difficulty. She was voiding without difficulty. She had minimal bleeding on her thang-pad on exam. She was not passing gas but was feeling like she needed to pass some gas. She desired to be discharged home in the morning of postoperative day #1. - Patient Instructions Diet: Regular Diet as Tolerated Activity: Apply Ice, As Tolerated, No Lifting Over 20 Pounds Activity, Other: Nothing in the vagina for 6 weeks Driving: Do Not Drive (While taking narcotic medications or having significant pain) Showering/Bathing: May Shower, No Tub Bathing/Swimming (For 2 weeks) Wound/Incision Care: Keep Operative Site/Wound Site Clean and Dry Notify Provider of: Fever, Increased Pain, Swelling and Redness, Drainage, Nausea and/or Vomiting Other/Special Instructions: Please contact our office if you have heavy vaginal bleeding enough to soak a pad in less than an hour. - Discharge Plan *PRESCRIPTION DRUG MONITORING PROGRAM REVIEWED*: Yes *COPY OF PRESCRIPTION DRUG MONITORING REPORT IN PATIENT [place]: No (No report of narcotic prescriptions in [place] drug monitoring program.) Prescriptions/Med Rec: Acetaminophen/oxyCODONE [Percocet 325-5 MG] 1 - 2 each PO Q6H PRN #30 tab PRN Reason: Pain Enoxaparin [Lovenox] 40 mg SUBCUT DAILY #10 syringe Ibuprofen 600 mg PO Q6H PRN #60 tablet PRN Reason: Pain Ondansetron [Zofran ODT] 4 mg PO Q6H PRN #30 tab.dis PRN Reason: Nausea/Vomiting Home Medications: Home Meds Cholecalciferol (Vitamin D3) [Vitamin D3] 2,000 unit PO DAILY 01/23/19 [History] Rosuvastatin [Crestor] 5 mg PO DAILY 01/23/19 [History] Acetaminophen/oxyCODONE [Percocet 325-5 MG] 1 - 2 each PO Q6H PRN #30 tab [Rx] Alendronate Sodium [Fosamax] 70 mg PO FR 05/03/19 [History] Enoxaparin [Lovenox] 40 mg SUBCUT DAILY #10 syringe 05/03/19 [Rx] Ibuprofen 600 mg PO Q6H PRN #60 tablet 05/03/19 [Rx] Meloxicam 15 mg PO DAILY PRN 05/03/19 [History] Ondansetron [Zofran ODT] 4 mg PO Q6H PRN #30 tab.dis 05/03/19 [Rx] Patient Handouts: Ondansetron tablets, Acetaminophen; Oxycodone tablets, Ibuprofen tablets and capsules, Enoxaparin injection, Urethral Vaginal Sling, Care After, Vaginal Hysterectomy, Care After Referrals: Juvenal Gramajo MD [Physician] - 05/16/19 11:30 am (Follow-up in 2 weeks for routine postoperative appointment or earlier as needed.) - Discharge Summary/Plan Comment DC Time >30 min.: No - Patient Data Vitals - Most Recent: Last Vital Signs Temp 36.8 C 05/04/19 04:59 Pulse 48 L 05/04/19 04:59 Resp 12 05/04/19 04:59 BP 110/57 L 05/04/19 04:59 Pulse Ox 92 L 05/04/19 04:59 Weight - Most Recent: 71.214 kg I&O - Last 24 hours: Intake & Output 05/03/19 05/04/19 05/04/19 22:59 06:59 14:59 Intake Total 1390 Output Total 710 Balance 680 Lab Results - Last 24 hrs: Laboratory Results - last 24 hr 10/04/19 10/04/19 10/04/19 Range/Units 07:21 07:35 07:35 WBC 4.57 (3.98-10.04) K/mm3 RBC 4.82 (3.98-5.22) M/mm3 Hgb 14.0 (11.2-15.7) gm/dl Hct 40.8 (34.1-44.9) % MCV 84.6 (79.4-94.8) fl MCH 29.0 (25.6-32.2) pg MCHC 34.3 (32.2-35.5) g/dl RDW Std Deviation 41.9 (36.4-46.3) fL Plt Count 243 (182-369) K/mm3 MPV 10.2 (9.4-12.3) fl Neut % (Auto) 56.9 (34.0-71.1) % Lymph % (Auto) 30.4 (19.3-51.7) % [place] % (Auto) 10.7 (4.7-12.5) % Eos % (Auto) 1.3 (0.7-5.8) Baso % (Auto) 0.7 (0.1-1.2) % Neut # (Auto) 2.60 (1.56-6.13) K/mm3 Lymph # (Auto) 1.39 (1.18-3.74) K/mm3 [place] # (Auto) 0.49 H (0.24-0.36) K/mm3 Eos # (Auto) 0.06 (0.04-0.36) K/mm3 Baso # (Auto) 0.03 (0.01-0.08) K/mm3 Sodium (136-145) mEq/L Potassium (3.5-5.1) mEq/L Chloride (98-107) mEq/L Carbon Dioxide (21-32) mEq/L Anion Gap (5-15) BUN (7-18) mg/dL Creatinine (0.55-1.02) mg/dL Est Cr Clr Drug Dosing mL/min Estimated GFR (MDRD) (>60) mL/min BUN/Creatinine Ratio (14-18) Glucose (80-115) mg/dL Calcium (8.5-10.1) mg/dL Total Bilirubin (0.2-1.0) mg/dL AST (15-37) U/L ALT (14-59) U/L Alkaline Phosphatase (46-116) U/L Total Protein (6.4-8.2) g/dl Albumin (3.4-5.0) g/dl Globulin gm/dL Albumin/Globulin Ratio (1-2) Urine Color Yellow (Yellow) Urine Appearance Clear (Clear) Urine pH 7.5 (5.0-8.0) Ur Specific [place] 1.020 (1.005-1.030) Urine Protein Negative (Negative) Urine Glucose (UA) Negative (Negative) Urine Ketones Negative (Negative) Urine Occult Blood 1+ H (Negative) Urine Nitrite Negative (Negative) Urine Bilirubin Negative (Negative) Urine Urobilinogen 0.2 (0.2-1.0) Ur Leukocyte Esterase 1+ H (Negative) Blood Type A POSITIVE Gel Antibody Screen Negative 05/03/19 05/04/19 Range/Units 07:35 04:05 WBC 6.97 (3.98-10.04) K/mm3 RBC 4.18 (3.98-5.22) M/mm3 Hgb 12.1 D (11.2-15.7) gm/dl Hct 35.5 (34.1-44.9) % MCV 84.9 (79.4-94.8) fl MCH 28.9 (25.6-32.2) pg MCHC 34.1 (32.2-35.5) g/dl RDW Std Deviation 41.2 (36.4-46.3) fL Plt Count 228 (182-369) K/mm3 MPV 10.5 (9.4-12.3) fl Neut % (Auto) 75.9 H (34.0-71.1) % Lymph % (Auto) 14.9 L (19.3-51.7) % [place] % (Auto) 9.2 (4.7-12.5) % Eos % (Auto) 0 L (0.7-5.8) Baso % (Auto) 0.0 L (0.1-1.2) % Neut # (Auto) 5.29 (1.56-6.13) K/mm3 Lymph # (Auto) 1.04 L (1.18-3.74) K/mm3 [place] # (Auto) 0.64 H (0.24-0.36) K/mm3 Eos # (Auto) 0.00 L (0.04-0.36) K/mm3 Baso # (Auto) 0.00 L (0.01-0.08) K/mm3 Sodium 140 (136-145) mEq/L Potassium 3.7 (3.5-5.1) mEq/L Chloride 104 (98-107) mEq/L Carbon Dioxide 25 (21-32) mEq/L Anion Gap 14.7 (5-15) BUN 16 (7-18) mg/dL Creatinine 0.6 (0.55-1.02) mg/dL Est Cr Clr Drug Dosing 81.80 mL/min Estimated GFR (MDRD) > 60 (>60) mL/min BUN/Creatinine Ratio 26.7 H (14-18) Glucose 106 (80-115) mg/dL Calcium 9.6 (8.5-10.1) mg/dL Total Bilirubin 0.6 (0.2-1.0) mg/dL AST 18 (15-37) U/L ALT 33 (14-59) U/L Alkaline Phosphatase 64 (46-116) U/L Total Protein 7.9 (6.4-8.2) g/dl Albumin 4.3 (3.4-5.0) g/dl Globulin 3.6 gm/dL Albumin/Globulin Ratio 1.2 (1-2) Urine Color (Yellow) Urine Appearance (Clear) Urine pH (5.0-8.0) Ur Specific [place] (1.005-1.030) Urine Protein (Negative) Urine Glucose (UA) (Negative) Urine Ketones (Negative) Urine Occult Blood (Negative) Urine Nitrite (Negative) Urine Bilirubin (Negative) Urine Urobilinogen (0.2-1.0) Ur Leukocyte Esterase (Negative) Blood Type Gel Antibody Screen Med Orders - Current: Current Medications Lactated Ringer's (Ringers, Lactated) 1,000 mls @ 125 mls/hr IV ASDIRECTED [facility] Last Admin: 05/04/19 05:28 Dose: 125 mls/hr Ibuprofen (Motrin) 600 mg PO Q6H PRN PRN Reason: Pain Ondansetron HCl (Zofran) 4 mg IVPUSH Q4H PRN PRN Reason: Nausea Last Admin: 05/03/19 21:16 Dose: 4 mg Oxycodone/Acetaminophen (Percocet 325-5 Mg) 1 - 2 tab PO Q6H PRN PRN Reason: Pain Last Admin: 05/03/19 21:16 Dose: 1 tab Discontinued Medications Bupivacaine HCl/Dextrose ([place] 0.75% Spinal) Confirm Administered Dose 2 ml .ROUTE .STK-MED ONE Stop: 05/03/19 07:35 Cefazolin Sodium (Ancef) Confirm Administered Dose 2 gm .ROUTE .STK-MED ONE Stop: 05/03/19 07:47 Dexamethasone (Dexamethasone) Confirm Administered Dose 20 mg .ROUTE .STK-MED ONE Stop: 05/03/19 07:22 Enoxaparin Sodium (Lovenox) 40 mg SUBCUT ONETIME ONE Stop: 05/03/19 10:13 Last Admin: 05/03/19 13:30 Dose: 40 mg Fentanyl (Sublimaze) Confirm Administered Dose 250 mcg .ROUTE .STK-MED ONE Stop: 05/03/19 07:23 Fentanyl (Sublimaze) 50 mcg IVPUSH Q5M PRN PRN Reason: Pain Stop: 05/03/19 14:00 Glycopyrrolate () Confirm Administered Dose 1 mg .ROUTE .STK-MED ONE Stop: 05/03/19 08:40 Hydromorphone HCl (Dilaudid) 0.5 mg IVPUSH Q10M PRN PRN Reason: Pain (severe 7-10) Stop: 05/03/19 14:00 Lactated Ringer's (Ringers, Lactated) 1,000 mls @ 125 mls/hr IV ASDIRECTED EUN Stop: 05/03/19 23:00 Last Admin: 05/03/19 20:51 Dose: 125 mls/hr Lidocaine HCl (Xylocaine-Mpf 1%) Confirm Administered Dose 4 mls @ as directed .ROUTE .STK-MED ONE Stop: 05/03/19 07:22 Lidocaine/Epinephrine (Xylocaine 1% With Epinephrine 1:100,000) Confirm Administered Dose 20 ml .ROUTE .STK-MED ONE Stop: 05/03/19 07:39 Last Admin: 05/03/19 08:24 Dose: 9.5 ml Lidocaine/Sodium Bicarbonate (Buffered Lidocaine 1% In Ns 8.4%) 0.25 ml IDERM ONETIME PRN PRN Reason: Prior to IV Start Stop: 05/03/19 18:00 Last Admin: 05/03/19 07:35 Dose: 0.25 ml Midazolam HCl (Versed 1 Mg/Ml) Confirm Administered Dose 2 mg .ROUTE .STK-MED ONE Stop: 05/03/19 07:47 Morphine Sulfate (Morphine) Confirm Administered Dose 10 mg .ROUTE .STK-MED ONE Stop: 05/03/19 09:10 Ondansetron HCl (Zofran) Confirm Administered Dose 4 mg .ROUTE .STK-MED ONE Stop: 05/03/19 07:22 Ondansetron HCl (Zofran) 4 mg IVPUSH ONETIME PRN PRN Reason: Nausea/Vomiting Stop: 05/03/19 14:00 Last Admin: 05/03/19 11:58 Dose: 4 mg Propofol (Diprivan 20 Ml) Confirm Administered Dose 200 mg .ROUTE .STK-MED ONE Stop: 05/03/19 07:23 Rocuronium [place] (Zemuron) Confirm Administered Dose 50 mg .ROUTE .STK-MED ONE Stop: 05/03/19 07:22 Sodium Chloride (Saline Flush) 10 ml FLUSH ASDIRECTED PRN PRN Reason: Keep Vein Open Stop: 05/03/19 18:00 Sodium Chloride (Normal Saline) Confirm Administered Dose 50 ml .ROUTE .STK-MED ONE Stop: 05/03/19 07:39 Last Admin: 05/03/19 08:24 Dose: 28.5 ml
== END 2019-05-04 09:20 | disposition home or self-care (01) ==
LOC: JD.SDS 07:18 → JD.MS 16:41 → JD.SDS 05-04 09:20
PROVIDERS: ATTEND Obstetrics & Gynecology
DX: N81.3 Complete uterovaginal prolapse (principal); N39.3 Stress incontinence (female) (male); N87.9 Dysplasia of cervix uteri, unspecified; N72 Inflammatory disease of cervix uteri; N80.0 Endometriosis of uterus; N73.6 Female pelvic peritoneal adhesions (postinfective)
CPT/HCPCS: 36415; 57260; 57288; 58263; 80053; 81003; 85025; 86850; 86900; 86901; A9270; C1771; J0690; J1100; J1650; J2001; J2250; J2270; J2405; J2704; J3010; J7120; 00840